=== PATIENT | male | born 1955 | race Caucasian/White ===

== ENCOUNTER 2024-03-11 17:01 | Emergency (ER) | payer MEDICARE, SELFPAY ==
[2024-03-11 17:23] VITALS: BP 139/97; PULSE 101; RESP 20; TEMP 36.6; O2SAT 97
[2024-03-11 17:34] VITALS: BP 139/97; PULSE 101; RESP 20; TEMP 36.6; O2SAT 97
--- NOTE | 2024-03-11 18:19 | ED.SKABFB ---
HPI - Skin/Abscess/Foreign Bdy General Chief complaint: Skin/Abscess/Foreign Body Stated complaint: Skin Sore/Legs Time Seen by Provider: 03/11/24 18:10 Source: patient, RN notes reviewed and old records reviewed Mode of arrival: ambulatory Limitations: no limitations History of Present Illness HPI narrative: 68 year old male presents to express care with complaints of redness and swelling his bilateral lower legs with some itching and some areas of discomfort. Patient reports that his legs have b3n swollen for months and for the past week he has been keeping them elevated and the swelling is better. He saw his pain doctor last week on Sunday and was told he needed to go get legs looked at and he may need antibiotic.Patient has no ope areas note on legs or any weeping has area of scabs noted to anterior left lower leg, left leg swollen greater than right with 1+ pitting edema from mid lower leg to ankles. MD complaint: other (cellulitis, redness and swelling of bilateral lower legs) Onset (ago): month(s) (states sweling for months) Location: LLE and RLE Severity scale (1-10): 8 Exacerbating factors: other (walking and weight bearing and palpation) Treatments prior to arrival: other (elevation of his legs) Related Data Home Medications Medication Instructions Recorded Confirmed aripiprazole 10 mg tablet mg 03/11/24 citalopram 10 mg tablet mg 03/11/24 diclofenac sodium 1 % topical gel topical 03/11/24 hydrocodone 7.5 mg-acetaminophen tablet 03/11/24 325 mg tablet ibuprofen 800 mg tablet mg 03/11/24 lidocaine 5 % topical ointment 03/11/24 metformin 500 mg tablet mg 03/11/24 phentermine 30 mg capsule mg 03/11/24 semaglutide 14 mg tablet (Rybelsus) mg PO 03/11/24 03/11/24 Allergies Allergy/AdvReac Type Severity Reaction Status Date / Time No Known Allergies Allergy Verified 03/11/24 17:15 Review of Systems Review of Systems: CONSTITUTIONAL: Denies fever, chills, or sweats. CARDIOVASCULAR: Denies chest pain, palpitations, or edema. RESPIRATORY: Denies cough or dyspnea. GASTROINTESTINAL: Denies abdominal pain, nausea, vomiting SKIN: Reports redness and swelling to bilateral pretibial to pedal area with no open drainage or open wound but few scabbed area. Denies purulent drainage, vesicles, bullae, reports some pain to legs aggravated by activity and palpation, pedal pulses palpable fair quality bilateral with left leg swollen greater than right. MUSCULOSKELETAL: Denies myalgia. NEUROLOGIC: Denies headache, numbness All systems reviewed & are unremarkable except as noted in HPI and below PMFSH Past Medical History Medical History (Updated 03/12/24 @ 20:19 by Arlyn Chisholm NP) Anxiety and depression Back injury Cellulitis Chronic back pain Diabetes Fracture of neck Fracture, ankle Fractured elbow Surgical History Surgical History (Updated 03/12/24 @ 20:18 by Arlyn Chisholm NP) H/O cervical spine surgery with hardware S/P spinal surgery lumbar Social History Social History (Updated 03/12/24 @ 20:20 by Arlyn Chisholm NP) Smoking packs per day: 0.5 Smoking cigarettes per day: 10.0 Smoking status: Current every day smoker Tobacco type: cigarettes Alcohol intake: unknown Substance use: current Substance use type: opiates Other substance usage details: pain management for chronic back pain Comments At time of signature, agree with nursing past medical, surgical, social and family history. There is no relevant family history pertinent to the presenting complaint Exam Narrative: GENERAL:chronic ill-appearing, well-nourished, obese and in no acute distress. HEAD: Normocephalic, atraumatic. EYES: PERRLA, conjunctivae clear, and EOMI. ENT: Mucous membranes moist. Oropharynx without edema, erythema or lesions. NECK: Supple. No lymphadenopathy CHEST: Clear to auscultation. No respiratory distress.no tachypnea SAO2 97% on room air HEART: Regular rate
== END 2024-03-11 18:40 | disposition home or self-care (01) ==
PROVIDERS: Emergency Provider Registered Nurse
DX: L03.116 Cellulitis of left lower limb (principal); L03.115 Cellulitis of right lower limb; E11.9 Type 2 diabetes mellitus without complications; F17.210 Nicotine dependence, cigarettes, uncomplicated; Z79.84 Long term (current) use of oral hypoglycemic drugs
CPT/HCPCS: 99203; G0463

== ENCOUNTER 2024-11-19 19:58 | Emergency (ER) | payer MEDICARE, SELFPAY ==
--- OUTSIDE RECORDS SUMMARY | 2024-11-19 20:01 | XMS_ITS | Clinical Summary ---
Author Organization [facility] Address [address] [place] [address] Care Team Providers Care Scientific Laboratory Supervisor Name Role Phone Unavailable Primary Care Provider Unavailabl e Source Comments [facility],non-owned Affiliates and Associated Physician Practices is amultiple site organization consisting of ambulatory clinics and hospital sitesin [place], [place], [place] and [place]. This disclosure is being madepursuant to the Care Everywhere program and may not contain all information available regarding this patient. Last updated 18.[facility] [employer] Allergies No known active allergies Medications * Be aware that medications may not be up to date on this document. Alwaysverify current medications with the patient. acetaminophen (TYLENOL) 325 MG tablet Take 2 Tabs by mouth every 4 hours as needed ( for temperature greater than 101F). Maximum allowable Acetaminophen amount = 4 Grams (4000 mg) / 24 hours. 5 Active ondansetron (ZOFRAN) 4 MG tablet Take 1 Tab by mouth every 4 hours as needed for Nausea/Vomiting. 10 Tab 0 5 Active ibuprofen (MOTRIN) 800 MG tablet Take 1 Tab by mouth every 6 hours as needed for Pain Take it with food 60 Tab 0 5 Active albuterol-ipra tropium (DUO-NEB) 0.5-2.5 (3) MG/3ML nebulizer solution Inhale 3 mL by mouth every 4 hours as needed for Shortness of Breath or Wheezing 3 mL 0 5 Active ARIPiprazole (ABILIFY) 10 MG tablet Take 10 mg by mouth once daily Active amphetamine-de xtroamphetamin e (ADDERALL) 20 MG tablet Take 20 mg by mouth every morning Active Active Problems Problem Noted Date Diagnosed Date Closed dislocation of left hip 02/26/2019 Cellulitis 11/23/2014 Immunizations Immunization Administration Dates Next Due PNEUMOCOCCAL PPSV23 11/28/2014 Social History Tobacco Use Types Packs/Day Years Used Date Smoking Tobacco: Every Day Cigarettes Smokeless Tobacco: Never Tobacco Cessation:Ready to Q uit: No; Counseling Given: Yes Alcohol Use Standard Drinks/Week Comments Yes 0 (1 standard drink = 0.6 oz pur e alcohol) occ Sex and Gender Information Value Date Recorded Sex Assigned at Not on file Legal Sex Male 10:06 AM CDT Gender Identity Not on file Sexual Orientation Not on file Last Filed Vital Signs Vital Sign Reading Time Taken Comments Blood Pressure 129/70 03/04/2019 11:59 AM CDT Pulse 75 03/04/2019 11:59 AM CDT Temperature 36.7 C (98 F) 03/04/2019 11:59 AM CDT Respiratory Rate 16 03/04/2019 11:5 9 AM CDT Oxygen Saturation 93% 03/04/2019 11: 59 AM CDT Inhaled Oxygen Concentration 21% 12/26/2014 7 :46 AM CDT Weight 117.5 kg (259 lb 0.7 oz) 03/02/2019 3:29 AM CDT Height 182.9 cm (6') 02/26/2019 6:24 PM CDT Body Mass Index 35.13 02/26/2019 6:24 PM CDT Plan of Treatment Health Maintenance Due Date Last Done Comments COLOGUARD (AGES 45-75) - COL ON CA SCREENING 1956 COLON MONITORING 1956 COLONOSCOPY - COLON CA SCREENING 1956 CT COLONOGRAPHY - COLON CA SCREENING 1956 Colorectal Cancer Screening 1956 FIT - COLON CA SCREENING 1956 FLEX SIG - COLON CA SCREENING 1956 LIPID TESTING 1956 HEPATITIS C SCREENING 11/15/1974 DTAP/TDAP/TD VACCINES (1 - Tdap) 11/20/1975 ZOSTER VACCINE (1 of 2) 2006 PNEUMOCOCCAL VACCINE 50+ (2 of 2 - PCV) 11/29/2015 11/28/2014 AAA SCREENING 2021 COVID-19 VACCINE (1 - 2023-2 5 season) 2024 DEPRESSION SCREENING 07/02/2024 INFLUENZA VACCINE (Season Ended) 2025 Respiratory Syncytial Virus (RSV) Vaccine Pt: or over 60 yrs (1 - 1-dose 75+ series) 11/20/2031 HEPATITIS B VACCINE Aged Out No longe r eligible based on patient's age to complete this topic HIB VACCINE Aged Out No longer eligi ble based on patient's age to complete this topic HPV VACCINE Aged Out No longer eligi ble based on patient's age to complete this topic MENINGOCOCCAL (Group B) VACC INE SHARED DECISION-MAKING Aged Out No longer eligibl e based on patient's age to complete this topic MENINGOCOCCAL GROUPS A/C/Y/W VACCINE Aged Out No longer eligible b ased on patient's age to complete this topic Insurance MEDICARE MEDICAID - [place] MEDICARE MEDICAID - OUT OF [facility] Advance Directives * Full Code (Latest Code Status on File) Date Activated Date Inactivated Comments 02/26/2019 10:46 PM 03/04/2019 6:06 PM * Full Code Date Activated Date Inactivated Comments 12/20/2014 6:01 PM 12/26/2014 3:34 PM * Full Code Date Activated Date Inactivated Comments 11/21/2014 3:42 PM 11/28/2014 4:48 PM
--- OUTSIDE RECORDS SUMMARY | 2024-11-19 20:01 | XMS_ITS | Encounter Summary ---
Author Organization [facility] Address [address] [place] [address] Phone Care Team Providers Care Senior Sales Consultant Name Role Phone Brian Renteria MD Unavailable Unavailab Priyank Dick MD Primary Care Provider [phone] Omar Hernandes MD Unavailable Encounter Details Date Type Department Care Team (Late st Contact Info) Description 07/08/2020 Telephone [facility] Oncology Services [address] [place] [phone] Joseph Iglesias MD [address] [place] [address] Social History Tobacco Use Types Packs/Day Years Used Date Smoking Tobacco: Every Day Cigarettes 1 47.9 Started: 12/14/1976 Smokeless Tobacco: Never Alcohol Use Standard Drinks/Week Comments No 0 (1 standard drink = 0.6 oz pur e alcohol) Sex and Gender Information Value Date Recorded Sex Assigned at Not on file Legal Sex Male 7:52 PM CDT Gender Identity Not on file Sexual Orientation Not on file COVID-19 Exposure Response Date Recorded In the last month, have you been in contact with someone who was confirmed or suspected to have Coronavirus / COVID-19? No / Unsure 06/09/2020 3:24 PM SURFACE HYDROLOGIST documented as of this encounter Miscellaneous Notes * Telephone Encounter - Carlyn Mancini - 07/08/2020 1:09 PM CST I reached out to the patient to inform him that we would need to reschedule his follow up until hisCT angio was completed. It seems as if scheduling tried contacting the patient on several occasions, was unable to leave a voicemail, and did not receive a returned call. I provided the number for the [facility] scheduling department and asked the patient to please contact our office with his CT appt date. We will makes sure to get the patient back on the schedule. ACE HYDROLOGIST documented in this encounter Plan of Treatment Not on file documented as of this encounter Visit Diagnoses Not on filedocumented in this encounter Additional Health Concerns Assessment Noted Time PHQ-9 Depression Total Score: 1 02/21/20 19 1:00 PM CDT documented as of this encounter Care Teams Senior Sales Consultant Relationship Specialty Start Date End Date Priyank Ordonez MD [address] [facility] [address] [place] [address] PCP - General Family Medicine 03/25/19 Brian Renteria MD Consulting Physician Orthopaedic Surgery 12/14/17 Omar Hernandes MD [address] [facility] [address] [place] [address] Consulting Physician General Surgery 08/24/21 documented as of this encounter
--- OUTSIDE RECORDS SUMMARY | 2024-11-19 20:01 | XMS_ITS | Encounter Summary ---
Author Organization [facility] Address [address] [place] [address] Care Team Providers Care Finance Attorney Name Role Phone Unavailable Primary Care Provider Unavailabl e Encounter Details Date Type Department Care Team (Late st Contact Info) Description 08/12/2020 Lab Requisition [facility] Care DermPath Lab [address] [place] [address] Adrien Wright Jr., MD [address] [place] [address] Social History Tobacco Use Types Packs/Day Years Used Date Smoking Tobacco: Every Day Cigarettes Smokeless Tobacco: Never Alcohol Use Standard Drinks/Week Comments Yes 0 (1 standard drink = 0.6 oz pur e alcohol) occ Sex and Gender Information Value Date Recorded Sex Assigned at Not on file Legal Sex Male 10:06 AM CDT Gender Identity Not on file Sexual Orientation Not on file documented as of this encounter Functional Status * Is person deaf or have serious hearing difficulty? Answer Date of Assessment Author No 02/26/2019 10:30 PM KAMILAHT Duong Keller RN * Is person blind or have serious difficulty seeing? Answer Date of Assessment Author No 02/26/2019 10:30 PM KAMILAHT Duong Keller RN * Does person have serious difficulty walking/climbing stairs? Answer Date of Assessment Author No 02/26/2019 10:30 PM Duong Ochoa RN * Does person have difficulty dressing/bathing? Answer Date of Assessment Author No 02/26/2019 10:30 PM Duong Ochoa RN * Does person have difficulty doing errands alone? Answer Date of Assessment Author No 02/26/2019 10:30 PM Duong Ochoa RN documented as of this encounter Mental Status * Does person have difficulty concentrating/remembering/making decisions? Answer Entry Date Author No 02/26/2019 10:30 PM Duong Ochoa RN documented in this encounter Plan of Treatment Not on file documented as of this encounter Procedures Procedure Name Priority Date/Time Associated Diagnosis Comments DERMATOPATHOLOGY Routine 08/11/2020 12:0 0 AM MORTAR MAKER documented in this encounter Results * DERMATOPATHOLOGY (08/11/2020 12:00 AM MORTAR MAKER) Case Report Dermatopathology Report Case: [id number] Authorizing Provider: Adrien Wright Jr., MD Collected: 08/11/2020 12:00 AM Ordering Location: [facility] DermPath Lab Received: 08/12/2020 12:00 PM Pathologist: Beck Short MD Specimens: A) - Skin, right inferior central forehead B) - Skin, left central buccal cheek C) - Skin, left superior lateral malar cheek 1 2:13 PM [facility] DERMATOPATHOLOGY LABORATORY Final Diagnosis Specimen A. SKIN, right inferior central forehead: COMPOUND MELANOCYTIC NEVUS, IRRITATED (D22.39) Specimen B. SKIN, left central buccal cheek: PIGMENTED SEBORRHEIC KERATOSIS (L82.1) Specimen C. SKIN, left superior lateral malar cheek: INTRADERMAL MELANOCYTIC NEVUS (D22.39) 1 2:13 PM [facility] DERMATOPATHOLOGY LABORATORY at [address] [facility] Clinical History A: Irritated nevus. B: Inflamed seborrheic keratosis. C: Intradermal nevus. . 1 2:13 PM [facility] DERMATOPATHOLOGY LABORATORY Gross Description Specimen A: Received is one formalin filled container labeled with the patient's name and designated right inferior central forehead. The specimen consists of a shave biopsy measuring [id number], bisected. Jar 0. Specimen B: Received is one formalin filled container labeled with the patient's name and designated left central buccal cheek. The specimen consists of a shave biopsy measuring [id number]. Jar 0. Specimen C: Received is one formalin filled container labeled with the patient's name and designated left superior lateral malar cheek. The specimen consists of a shave biopsy measuring [id number]. Jar 0. 1 2:13 PM [facility] DERMATOPATHOLOGY LABORATORY Microscopic Description Specimen A. SKIN, right inferior central forehead: There is melanin pigment in the stratum corneum. There are nests of melanocytes at the dermal-epidermal junction and within the dermis. Specimen B. SKIN, left central buccal cheek: Sections show an acanthotic lesion composed of relatively uniform keratinocytes. There is hyperkeratosis and pseudo horn cysts. Pigment is present in the keratinocytes composing this tumor. Specimen C. SKIN, left superior lateral malar cheek: There are nests of cytologically bland melanocytes within the dermis that mature with depth. 2:13 PM [facility] DERMATOPATHOLOGY LABORATORY Disclaimer An external and internal positive and negative controls are appropriate for the histochemical, immunohistochemical and immunofluorescence stain(s) in this case (if any), except where stated explicitly. The performance characteristics of the stain(s) cited in this report were developed and its performance characteristic determined by the Dermatopathology Laboratory at [facility], directed by Dr. Raiza Short. These tests need not be, and therefore are not, approved by the [place] Food and Drug Administration. The tests are used for clinical purposes. Billing Codes Specimen Charges Stain Charges 58145 [id number] 19031 1 1 1 1 2:13 PM [facility] DERMATOPATHOLOGY LABORATORY Embedded Images 2:13 PM [facility] DERMATOPATHOLOGY LABORATORY Pathology/Cytology TISSUE SPECIMEN FROM SKIN / Unknown 08/11/2020 08/12/2020 12:00 PM MORTAR [facility]KER Miscellaneous samples (specimen) TISSUE SPECIMEN FROM SKIN / Unknown 08/11/2020 08/12/2020 12:00 PM MORTAR MAKER Miscellaneous samples (specimen) TISSUE SPECIMEN FROM SKIN / Unknown 08/11/2020 08/12/2020 12:00 PM MORTAR [facility] us Adrien Wright Jr., MD LAB - PATHOLOGY/CYTOLOG Y ORDERABLES Final Result DERMATOPATHOLOGY LABORATORY [facility] - Department of Dermatology [facility] [address] [place] [address], [address] [phone] documented in this encounter Visit Diagnoses Not on filedocumented in this encounter
--- OUTSIDE RECORDS SUMMARY | 2024-11-19 20:01 | XMS_ITS | Encounter Summary ---
Author Organization [facility] Address [address] [place] [address] Phone Care Team Providers Care Commercial Subcontractor Name Role Phone Brian Renteria MD Unavailable Unavailab Priyank Ordonez MD Primary Care Provider + [phone] Omar Hernandes MD Unavailable Reason for Visit * Reason Onset Date Comments Referral 10/28/2020 Encounter Details Date Type Department Care Team (Late st Contact Info) Description 10/28/2020 Telephone [facility] [address] [place] [address] Priyank Ordonez MD [address] [address] Referral Social History Tobacco Use Types Packs/Day Years [...] have Coronavirus / COVID-19? No / Unsure 10/26/2020 4:24 PM CDT documented as of this encounter Miscellaneous Notes * Telephone Encounter - Doni Mcmahon RN - 10/28/2020 3:30 PM CDT Pt asking for a pain management referral to Dr Parnell for his back and hip pain. Referral penned for approval documented in this encounter Plan of Treatment Not on file documented as of this encounter Visit Diagnoses Diagnosis Chronic pain syndrome- Primary Left cervical lymphadenopathy Enlargement of lymph nodes History of hip replacement, total, left Other chronic back pain Hip pain Pain in joint, pelvic region and thigh documented in this encounter Additional Health Concerns Assessment Noted Time PHQ-9 Depression Total Score: 1 02/21/20 19 1:00 PM CDT documented as of this encounter Care Teams Commercial Subcontractor Relationship Specialty Start Date End Date Priyank Ordonez MD #2 [facility] [address] [place] [address] PCP - General Family Medicine 03/25/19 Brian Renteria MD Consulting Physician Orthopaedic Surgery 12/14/17 Omar Hernandes MD #2 [facility] [address] [place] [address] Consulting Physician General Surgery 08/24/21 documented as of this encounter
--- OUTSIDE RECORDS SUMMARY | 2024-11-19 20:02 | XMS_ITS | Continuity of Care Document ---
Author Organization [facility] Address [address] [place] [address] [place] [address] Phone Care Team Providers Care Educational Assistant Teacher Name Role Phone Arnol Liu MD Unavailable Unavailable Allergies, Adverse Reactions, Alerts Substance Reaction Status Criticality No Known Allergies Active No Inform ation Medications Medication Instructions Dosage Effective Dates (start - stop) Status Comments Percocet 5 mg-325 mg tablet take 1 tablet by oral route 4 times every day as needed as needed 1 tablet - Active PRn for pain, avoid driving or operate machines, Procedures Procedure Date OFFICE/OUTPATIENT VISIT, EST OFFICE/OUTPATIENT VISIT, EST OFFICE/OUTPATIENT VISIT, [facility] Advance Directives Directive Yes / No Effective Date File Name No Information Encounters Encounter Description Practice Location Reason(s) For Visit Diagnoses Date Provider Providers Copied on Encounter OFFICE/OUTPA TIENT VISIT, [facility], [address] [place], [id number], tel:[phone] [facility] pain (chief complaint) hernia1 (chief complaint) Ventral herniaChronic pain syndrome 1 Noe Lyles [address], [place], [id number] , [place]. tel:[phone] OFFICE/OUTPA TIENT VISIT, [facility], [address] [place], [id number], tel:[phone] [facility] hernia1 (chief complaint) pain1 (chief complaint) HTN (chief complaint) Chronic pain syndromeVentral herniaEssential (primary) hypertension 1 Noe Lyles [address], [place], [place], [id number] , [place]. tel:[phone] OFFICE/OUTPA TIENT VISIT, [facility], [address], [place], [place], [id number], [place] tel:[phone] [facility] chronic pain1 (chief complaint) ADD (chief complaint) HTN (chief complaint) hernia1 (chief complaint) Chronic pain syndromeEssential (primary) hypertensionVentral herniaAttention deficit 1 Noe Ambrose. [address], [place], [place], [id number] , [place]. tel:[phone] Family History Family Member Type Diagnosis Age At Onset Brother Problem Alive and well Mother Problem of lung [place] 71 Father Problem Alive and well Payers Payer name Insurance type Covered democrat ID Authoriza tion(s) No Information Social History Type Description Quantity Date Captured Comments Alcohol Use Details beer & wine Caffeine Use Details Unknown Tobacco Use Status Moderate cigarette smoker (10-19 cigs/day) Smoking Status Heavy tobacco smoker Smoking Tobacco Use Details Cigarette: Age Started: 34, Years Used 31 Cigarette: 0.5 Packs per day, Pack Year: 15.5 Sex Male Vital Signs Date / Time: Height Weight BMI Pulse Rate Blood Pressure Temperature Respiratory Rate Body Surface Area Head Circumference BMI percentile Pulse Ox Inhaled Ox 3:01 PM 72.00 in 312.20 lbs 42.3 4 kg/m eter (2) 83 /min 137/78 mm[Hg] 95.8 F 18 /min Chief Complaint And Reason For Visit From encounter dated '01/25/2021 15:00'. pain (chief complaint). Description: Pt has severe chronic neck and hip pain Pt has history of necksurgery due to cervical disc herniation. Pt c/o right radiculopathy and right hand numbness and tingling. Pt has ml with new pain management on 02/03/21. He had ml in December but the ml was canceled and rescheduled until 02/03/21 hernia1 (chief complaint). Description: Pt has non reducible ventral hernia/ P denies any worseningpain .Pt called surgery and is trying to get ml set up .Pt could not go to ml in January due to personal issue and he will call back to schedule soon Plan Of Treatment Date Type Action Status Referral Referred To: Steve Miranda [address] [place], [phone] Ordered: Referrals: Steve Miranda. Evaluate and treat ordered Referral Ordered: Pain Medicine (related to Chronic pain syndrome) ordered Referral Ordered: Referrals: Pain Medicine. Evaluate and treat ordered History Of Present Illness Encounter Date Complaint History Of Prese nt Illness pain Pt has severe ch ronic neck and hip pain Pt has history of neck surgery due to cervical disc herniation. Pt c/o right radiculopathy and right hand numbness and tingling. Pt has ml with new pain management on 02/03/21. He had ml in December but the ml was canceled and rescheduled until 02/03/21 hernia1 Pt has non reduc ible ventral hernia/ P denies any worsening pain .Pt called surgery and is trying to get ml set up .Pt could not go to ml in January due to personal issue and he will call back to schedule soon pain1 Pt has severe ch ronic neck and hip pain Pt has history of neck surgery due to cervical disc herniation. Pt c/o right radiculopathy and right hand numbness and tingling. Pt sees Dr. Sullivan for pain management. Pt states that he has to go over to [facility] twice per month and he has to get neck injection every time he goes there which is not helping his pain. Pt currently takes percocet 5 mg QID which is not helping his pain either. Pt does not want to go to Dr. Sullivan anymore for pain management. He states that Dr. Sullivan's office is very unprofessional. Pt has ml with Dr. Allen in 3 months hernia1 Pt has history o f ventral hernia repair and he notices a small bulge with pain around the surgical site x 3 months. Pt denies any nausea, vomiting, constipation or diarrhea .Pt denies any bruising .Pt notices pain when he pushes on the spot. Pt decides to get it treated now. HTN Pt has HTN. Pt d enies any chest pain or headache. Pt denies any vision change . ADD Pt has ADD Pt ta kes adderall. Pt sees psychiatrist Pt has chronic fatigue with poor focus and concentration. Pt doing well with adderall HTN He denies any h/ o HTN Pt denies any chest pain or headache. Manual repeat BP is around 130/70 hernia1 Pt has history o f ventral hernia repair and he notices a small bulge with pain around the surgical site x 3 months. Pt denies any nausea, vomiting, constipation or diarrhea .Pt denies any bruising .Pt notices pain when he pushes on the spot. chronic pain1 Pt has severe ch ronic neck and hip pain Pt has history of neck surgery due to cervical disc herniation. Pt c/o right radiculopathy and right hand numbness and tingling. Pt sees Dr. Sullivan for pain management. Pt states that he has to go over to [facility] twice per month and he has to get neck injection every time he goes there which is not helping his pain. Pt currently takes percocet 5 mg QID which is not helping his pain either. Pt does not want to go to Dr. Sullivan anymore for pain management. He states that Dr. Sullivan's office is very unprofessional Instructions Date Instruction Additional Infor mckenzie No Information Assessments Type Assessment Date assessment Ventral hernia assessment Chronic pain syndrome Mental Status Date Cognitive Assessment Orientation - [place] ed to time, place, person, situation.
--- OUTSIDE RECORDS SUMMARY | 2024-11-19 20:02 | XMS_ITS | Clinical Summary ---
Author Organization [facility] Administrative Offices Address [address] [place] [address] Care Team Providers Care Hospital Social Worker Name Role Phone Unavailable Primary Care Provider Unavailabl e Social History Tobacco Use Types Packs/Day Years Used Date Smoking Tobacco: Never Assessed Sex and Gender Information Value Date Recorded Sex Assigned at Not on file Legal Sex Male 9:22 PM CDT Gender Identity Not on file Sexual Orientation Not on file Plan of Treatment Health Maintenance Due Date Last Done Comments DTAP/TDAP/TD VACCINES (1 - Tdap) 11/20/1975 COLORECTAL SCREENING 2001 Colorectal Cancer Screening 2001 FIT-DNA Q 3 years 2001 FIT/FOBT Q 1 year 2001 Flex Sig/CT Colonography Q 5 years 2001 ZOSTER VACCINE (1 of 2) 2006 PNEUMOCOCCAL VACCINE 50+ YEA RS (2 of 2 - PCV) 11/29/2015 11/28/2014 RSV VACCINE (60+ or ) (1 - Risk 60-74 years 1-dose series) 2016 INFLUENZA VACCINE (#1) 2024 03/31/2020, 2018 Insurance [employer] OPEN CHOICE PPO
--- OUTSIDE RECORDS SUMMARY | 2024-11-19 20:02 | XMS_ITS | Patient Health Record ---
Author Organization [facility] Address [address] [place] [address] Care Team Providers Care Heating And Blending Supervisor Name Role Phone Hesham Josiah Primary Care Provider Sar[facility], [facility] Unavailable U navailable Allergies No Known Allergies Reason For Referral No Information Medications Medication SIG (Take, Route, Frequency, Duration) Notes Start Date End Date Status Omeprazole 20 MG 1 capsule Orally Onc e a day Active hydrOXYzine HCl 10 MG two tablets Orally every 6 hrs for 30 days Active Abilify 10 MG 1 tablet Orally Once a day for 30 days Active hydrOXYzine HCl 10 MG 1-2 tablets for an xiety as needed Orally every 6 - 8 hrs for 30 days Active HYDROcodone-Acetaminophen 10-325 MG 1 tablet as needed Orally every 4 hrs Active Social History Tobacco Use: Social History Observation Description Date Details (start date - stop date) Current Smoker NA - NA Sex Assigned At : Social History Observation Description Sex Assigned At Male Dont use, Tobacco Use/Smoking Question Answer Notes Are you a current smoker Problems Problem Type SNOMED Code ICD Code Onset Dates Problem Status W/U Status Risk Notes Problem Schizoaffective disorder, bipolar type (43814353) Schizoaffective disorder, bipolar type (F25.0) Active confirmed Problem Posttraumatic stress disorder (82046248) PTSD (post-traumatic stress disorder) (F43.10) Active confirmed Problem Attention deficit hyperactivity disorder, predominantly inattentive type (36161412) ADHD (attention deficit hyperactivity disorder), inattentive type (F90.0) Active confirmed Problem Tobacco use (285286453) Tobacco use disorder (F17.200) Active confirmed Plan Of Treatment No Information Insurance Providers Payer Name Payer Address Payer Phone Subscriber Number Group Number Insured Name Patient Relationship to Insured Coverage Start Date Coverage End Date A[employer] Better [employer] Medicare-MM AI [address] [address] [place] [address] [id number] Robb Martin Self - patient is the insured [address] [facility] [address] [place] [address] [phone] [id number] Robb Martin Self - patient is the insured 2 MEDICARE PART A [address] [place] [address] [id number] Robb Martin Self - patient is the insured 5 [address] [place] [address] [id number] Robb Martin Self - patient is the insured 9 1 [employer] [address] [facility] [address] [place] [address] [id number] Robb Martin Self - patient is the insured 1 1 Aetna Medicare [address] [place] [address] [id number] Robb Martin Self - patient is the insured 2 1 Medical (General) History Medical History History ICD Code neuropathy Surgical History Surgery Date(Month/Year) 5 hip replacement [id number] 3 hip dislocation neck surgery 2005 Hospitalization History Reason Date(Month/Year) 5 hip replacement [phone] 3 hip dislocation neck surgery 2005
--- OUTSIDE RECORDS SUMMARY | 2024-11-19 20:02 | XMS_ITS | Referral Summary ---
Author Organization [facility] Address [address] [place] [address] Care Team Providers Care Manager Sap Name Role Phone Priyank Ordonez MD Primary Care Provider [phone] Cinthia Dickens RN Unavailable Unavailab le Allergies Active Allergy Reactions Criticality Noted Date Comments Ketamine Hallucinations High 09/17/2018 Intolerant to ketamine - high probability for emergence No Known Allergies Other (See comments) Low Reaction: Penicillins Hives,Nausea only Medium Reaction: HIVES Upset Stomach Medications ascorbic acid, vitamin C, (VITAMIN C) 500 mg capsule, extended release CR capsule Take one capsule PO once daily 30 0 6 Active multivitamin capsule Take 1 capsule by mouth daily Active albuterol HFA (VENTOLIN HFA) 90 mcg/actuation inhaler Inhale 2 puffs every 6 (six) hours as needed for wheezing. 1 Inhaler 9 Active ARIPiprazole (ABILIFY) 10 mg tablet TK 1 T PO D 2 9 Active cyanocobalamin (Vitamin B-12) 500 mcg tablet Take 500 mcg by mouth daily 9 Active albuterol 2.5 mg /3 mL (0.083 %) nebulizer solution Take 3 mL (2.5 mg total) by nebulization every 6 (six) hours as needed for wheezing 75 mL 4 Active ipratropium (ATROVENT) 0.02 % nebulizer solution Take 2.5 mL (0.5 mg total) by nebulization every 6 (six) hours 75 mL 4 Active omega-3 fatty acids-fish oil 300-1,000 mg capsuleIndicati ons:hypertrigly ceridemia Take 2 capsules (2 g total) by mouth daily Active metFORMIN (GLUCOPHAGE) 500 mg tabletIndicatio ns:type 2 diabetes mellitus Take 1 tablet (500 mg total) by mouth 2 (two) times a day with meals Active lidocaine (XYLOCAINE) 5 % ointment Apply 1 Application topically 2 (two) times a day 4 Active Active Problems Problem Noted Date Diagnosed Date Type 2 diabetes mellitus with diabetic neuropath y 04/30/2024 Hypocalcemia 04/30/2024 Hypokalemia 04/30/2024 Facial cellulitis 04/29/2024 Right shoulder pain 01/02/2022 Nicotine dependence, unspecified, uncomplicated 12/13/2021 Posttraumatic stress disorder 12/13/2021 Schizoaffective disorder, bipolar type 2 Acute thrombosis of left axillary vein 0 Enlargement of submandibular gland 06/14/2020 Left cervical lymphadenopathy 06/14/2020 Thrombophlebitis 06/14/2020 Ventral hernia without obstruction or gangrene 1 08/10/2019 Axillary mass, left 06/03/2020 Mass of left side of neck 06/03/2020 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, left 1 08/04/2019 History of abdominal hernia 04/28/2020 Cardiomegaly 04/05/2020 Pulmonary emphysema 05/18/2019 Primary osteoarthritis of right knee 05/05/[address] 04/13/2019 B12 deficiency 04/13/2019 Opacity of lung on imaging study 04/13/2019 Complex regional pain syndro me type 1 of both lower extremities 04/07/2019 Post laminectomy syndrome 04/07/2019 Long-term current use of opiate analgesic 2018 Anxiety 03/25/2019 Chronic narcotic use 03/25/2019 History of hip replacement, total, left 03/25/20 19 Hyperglycemia 03/25/2019 Obesity (BMI 30-39.9) 03/25/2019 Smoker 03/25/2019 Closed dislocation of left hip 02/26/2019 Impotence 09/23/2018 Cervicalgia 08/22/2018 Degenerative disc disease, cervical 08/22/2018 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/2018 Fibromyalgia 08/22/2018 Insomnia 08/22/2018 Aftercare following left hip joint replacement s urgery 02/05/2018 ADD (attention deficit disorder) 12/26/2017 Vitamin D deficiency 12/26/2017 Depression 12/26/2017 Loosening of prosthetic hip 12/12/2017 Overview (12/12/2017): Added automatically from request for surgery [id number] Arthralgia of hip 08/15/2017 Hyperlipidemia 07/02/2017 Peripheral neuropathy 12/08/2015 Arthritis 08/30/2015 Immunizations Immunization Administration Dates Next Due Pneumococcal Polysaccharide PPV23 11/28/2014 Social History Tobacco Use Types Packs/Day Years Used Date Smoking Tobacco: Every Day Cigarettes 0.2 36.7 Started: 1986; Last attempted to quit: 10/30/2017 Smokeless Tobacco: Never Tobacco Cessation:Ready to Q uit: Yes; Counseling Given: Not Answered Comments:patient is taking chantix now Alcohol Use Standard Drinks/Week Comments No 0 (1 standard drink = 0.6 oz pur e alcohol) thesweetlinkities Answer Date Recorded In the past 12 months has [employer], gas, oil, or water [employer] threatened to shut off services in your home? No 05/02/2024 Social Connection and Isolat ion Panel [NHANES] Answer Date Recorded In a typical week, how many times do you talk on the phone with family, friends, or neighbors? More than three times a week 05/02/2024 How often do you get togethe r with friends or relatives? Once a week 05/02/2024 How often do you attend chur or muslim services? Never 05/02/2024 Do you belong to any clubs o r organizations such as caodaism groups, unions, fraternal or athletic groups, or school groups? No 05/02/2024 How often do you attend meet ings of the clubs or organizations you belong to? Never 05/02/2024 Are you , , di vorced, , never , or living with a partner? Never 05/02/2024 AUDIT-C Answer Date Recorded Q1: How often do you have a drink containing alc ohol? 2-3 times a week 04/30/2024 Q2: How many drinks containi ng alcohol do you have on a typical day when you are drinking? 1 or 2 04/30/2024 Q3: How often do you have si x or more drinks on one occasion? Never 04/30/2024 Overall Financial Resource Strain (CARDIA) Answe r Date Recorded How hard is it for you to pa y for the very basics like food, housing, medical care, and heating? Somewhat hard 05/02/2024 PHQ-2 Answer Date Recorded PHQ-2 Score 3 02/19/2019 Hunger Vital Sign Answer Date Recorded Within the past 12 months, y ou worried that your food would run out before you got the money to buy more. Never true 05/02/20 24 Within the past 12 months, t he food you bought just didn't last and you didn't have money to get more. Never true 05/02/2024 PRAPARE - Transportation Answer Date Re corded In the past 12 months, has l ack of transportation kept you from medical appointments or from getting medications? No 07/2023 In the past 12 months, has l ack of transportation kept you from meetings, work, or from getting things needed for daily living? No 05/02/2024 Housing Stability Vital Sign Answer Adonis e Recorded In the last 12 months, was t here a time when you were not able to pay the mortgage or rent on time? No 05/02/2024 In the past 12 months, how m any times have you moved where you were living? 0 05/02/2024 At any time in the past 12 m [facility], were you homeless or living in a chcf (including now)? No 05/02/2024 Personal Safety Answer Date Recorded Have you ever been in or are you currently in a harmful physical or emotional relationship or is someone making you feel afraid or unsafe? 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 Gender Identity Not on file Sexual Orientation Not on file Last Filed Vital Signs Vital Sign Reading Time Taken Comments Blood Pressure 140/70 05/02/2024 11:32 AM CDT Pulse 87 05/02/2024 12:00 PM CDT Temperature 36.6 C (97.8 F) 05/02/2024 11:32 AM CDT Respiratory Rate 22 05/02/2024 11:32 AM CDT Oxygen Saturation 97% 05/02/2024 11:32 AM CDT Inhaled Oxygen Concentration - - Weight 131.5 kg (290 lb) 04/30/2024 4:24 PM CDT Height 182.9 cm (6') 04/30/2024 4:24 PM CDT Body Mass Index 39.33 04/30/2024 4:24 PM CDT Plan of Treatment Not on file Medical Devices Implanted Type Area [employer] Teacher Device Identifier Shelf Expiration Date Model / Serial / Lot [employer] [id number] Trilogy 60mm 36mm 9.9mm Primary Modular Cup Liner Hip Standard - S0 - [id number] Implanted:Qty: 1 on 12/27/2017 by Brian Renteria MD at [facility] Other - see comments Left: Hip [employer] [id number] 09/29/2022 [id number] / 0 / [id number] [employer] [id number] 60mm Modular Multihole Revision Hip Cup Acetabular Trabecular - S0 - [id number] Implanted:Qty: 1 on 12/27/2017 by Brian Renteria MD at [facility] Other - see comments Left: Hip [employer] [id number] 09/30/2027 [id number] / 0 / [id number] [employer] 6260-9-336 V40 Lfit 36mm Primary Hip +10mm Offset Taper Head Femoral - S0 - [id number] Implanted:Qty: 1 on 12/27/2017 by Brian Renteria MD at [facility] Other - see comments Left: Hip [employer] [id number] 07/31/2021 6260-9-336 / 0 / [id number] [employer] [id number] Trilogy 6.5mm 20mm Self Tap Screw Bone - S0 - [id number] Implanted:Qty: 1 on 12/27/2017 by Brian Renteria MD at [facility] Screw Left: Hip [employer] [id number] 10/30/2027 [id number] / 0 / [id number] [employer] [id number] Trilogy 6.5mm 30mm Self Tap Acetabular Cortical Screw Bone - S0 - [id number] Implanted:Qty: 1 on 12/27/2017 by Brian Renteria MD at [facility] Screw Left: Hip [employer] [id number] 10/30/2027 [id number] / 0 / [id number] [employer] [id number] Trilogy 6.5mm 40mm Self Tap Hip Acetabular Cortical Screw Bone - S0 - [id number] Implanted:Qty: 1 on 12/27/2017 by Brian Renteria MD at [facility] Screw Left: Hip [employer] [id number] 11/30/2027 [id number] / 0 / [id number] Procedures Procedure Name Priority Date/Time Associated Diagnosis Comments EGFR Routine 05/02/2024 4:17 AM CDT HEMOGLOBIN A1C Routine 04/30/2024 7:05 AM CDT from Last 3 Months or Most Recently Relevant to Health Maintenance Results * eGFR (05/02/2024 4:17 AM CDT) eGFR >90 >=60 mL/min/1. 73 m2 Comment: Interpretive Data Reference Interval Normal >/= 90 mL/min/1.73m2 Mildly decreased* 60 - 89 mL/min/1.73m2 Mildly to moderately decreased 45 - 59 mL/min/1.73m2 Moderately to severely decreased 30 - 44 mL/min/1.73m2 Severely decreased 15 - 29 mL/min/1.73m2 Kidney Failure < 15 mL/min/1.73m2 *Relative to young adult level Estimated glomerular filtration rate is determined by the 2020 CKD-EPI equation recommended by the National Kidney Foundation (A Unifying Approach to GFR Estimation: Recommendations of the NKF-ASK Task Force on Reassessing the Inclusion of Race in Diagnosing Kidney Disease, JASN 2020). The CKD-EPI equation should not be used for patients with unstable renal function and has not been validated in children and those over 70. Current interpretive data was last reviewed 2021. Blood 05/02/2024 4:17 AM CDT 05/02/2024 5:30 AM CDT us Mayra Grace MD LAB BLOOD ORDERABLES Final Resul t Performing Organization Address City/[facility] Co de Phone Number AJ MONROY ([facility]) [address] [place] [address] * (ABNORMAL) Hemoglobin A1c (04/30/2024 7:05 AM CDT) Hgb A1C 6.5(H) 4.0 - 5.6 % Estimated Average Glucose 140 mg/dL AJ MONROY ([facility]) Comment: The ADA recommends reporting an estimated Average Glucose (eAG) with all Hemoglobin A1c results using the equation derived from a study of 507 normal and diabetic adults. Minority populations were underrepresented and children were not included. (Diabetes Care 31:8557-1448, 2008). The eAG is not equivalent to a fasting glucose. Blood 04/30/2024 7:05 AM CDT 04/30/2024 2:54 PM CDT us Richie Machado Jr., MD LAB BLOOD ORDERABLE S Final Result Performing Organization Address City/[facility] Co de Phone Number AJ MONROY ([facility]) [address] [facility] [employer] [place] [address] from Last 3 Months or Most Recently Relevant to Health Maintenance Insurance MEDICARE IDPA [facility] MEDICARE IDPA AETNA [facility]VANTRA [facility] ADVANTRA Advance Directives For more information, please contact: [phone] * Full Code (Latest Code Status on File) Date Activated Date Inactivated Comments 04/30/2024 4:57 AM 05/02/2024 9:22 PM * Full Code Date Activated Date Inactivated Comments 12/27/2017 2:05 PM 01/01/2018 1:39 PM Care Teams Manager Sap Relationship Specialty Start Date End Date Priyank Ordonez MD [address] [place] [address] PCP - General 04/07/19 Cinthia Dickens, RN Registered Nurse 06/17/19
--- OUTSIDE RECORDS SUMMARY | 2024-11-19 20:02 | XMS_ITS | Encounter Summary ---
Author Organization [facility] Address [address] [place] [address] Phone Care Team Providers Care Chainsaw Mechanic Name Role Phone Brian Renteria MD Unavailable Unavailab le Priyank Ordonez MD Primary Care Provider + -[phone] Omar Hernandes MD Unavailable [phone] Reason for Visit * Reason Onset Date Comments Form Completion 11/04/2024 Encounter Details Date Type Department Care Team (Late st Contact Info) Description 11/04/2024 Telephone [facility] [address] [place] [address] Priyank Ordonez MD [address] [address] Form Completion Social History Tobacco Use Types Packs/Day Years [...] on file documented as of this encounter Miscellaneous Notes * Telephone Encounter - Rosmery Nova MA - 2024 10:42 AM CDT Faxed back. * Telephone Encounter - Mira Guerrero CMA - 11/04/2024 10:28 AM CDT Fax received from [facility] Chronic condition form Placed in provider folder for Signature/Completion. 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
--- OUTSIDE RECORDS SUMMARY | 2024-11-19 20:02 | XMS_ITS | Clinical Summary ---
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 use 08/22/2018 Fibromyalgia 08/22/2018 Insomnia 08/22/2018 Aftercare following left hip joint replacement s urgery 02/05/2018 ADD (attention deficit disorder) 12/26/2017 Vitamin D deficiency 12/26/2017 Depression 12/26/2017 Loosening of prosthetic hip 12/12/2017 Overview (12/12/2017): Added automatically from request for surgery [id number] Arthralgia of hip 08/15/2017 Hyperlipidemia 07/02/2017 Peripheral neuropathy 12/08/2015 Arthritis 08/30/2015 Immunizations Immunization Administration Dates Next Due Pneumococcal Polysaccharide PPV23 11/28/2014 Surgical History Surgery Date Site/Laterality Comments HERNIA REPAIR 07/02/2005 - 07/01/2006 Herniorrhaphy HIP ARTHROPLASTY 07/02/2003 - 07/01/2004 Hip replacement OTHER SURGICAL HISTORY many surgeries on neck, foot, hip VASECTOMY 07/02/1998 - 07/01/1999 Vasectomy HIP ARTHROPLASTY Left Hip replacement REVISION TOTAL HIP ARTHROPLASTY Medical History Medical History Date Comments Hx Other Medical 2003 neck surgery Hx Other Medical 2003 ankle surgery Depression Depression Arthritis Arthritis Adhd Depressed Family History Medical History Relation Name Comments Other Brother 2 Alive and well; Depression Brother 3 Depression; Other Father Alive and well; Depression Mother Depression; Lung cancer Mother Cancer -lung; Other Mother ; Relation Name Status Comments Brother 1 Alive Brother 2 Brother 3 Father Alive Mother Social History Tobacco Use Types Packs/Day Years Used Date Smoking Tobacco: Every Day Cigarettes 0.2 36.7 Started: 1986; Last attempted to quit: 10/30/2017 Smokeless Tobacco: Never Tobacco Cessation:Ready to Q uit: Yes; Counseling Given: Not Answered Comments:patient is taking chantix now Alcohol Use Standard Drinks/Week Comments No 0 (1 standard drink = 0.6 oz pur e alcohol) [facility] Utilities Answer Date Recorded In the past 12 months has [place], gas, oil, or water company threatened to shut off services in your [...] 05/02/2024 How often do you attend chur ch or protestant services? Never 05/02/2024 Do you belong to any clubs o r organizations such as baptist groups, unions, fraternal or athletic groups, or [...] any time in the past 12 m [facility], were you homeless or living in a intermediate (including now)? No 05/02/2024 Personal Safety Answer Date Recorded Have you ever been in or are you currently in a harmful physical or emotional relationship or is someone making you feel afraid or unsafe? 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 Gender Identity Not on file Sexual Orientation Not on file Obstetrics History Last Filed Vital Signs Vital Sign Reading [...] 04/30/2024 4:24 PM CDT Plan of Treatment Health Maintenance Due Date Last Done Comments Albumin Creatinine Ratio, Urine 1955 Colon Cancer Screening-Colonoscopy 1955 Hepatitis C Screening 1955 Prostate Cancer Screening-PSA 1955 Dilated Eye Exam 1956 Foot Exam 1956 DTaP/Tdap/Td Vaccine (1 - Tdap) 11/20/1967 Hepatitis B Screening 1974 Zoster Vaccine (1 of 2) 2006 Depression Screening 08/22/2019 08/22/2018, 08/22/19 19 Lipid Panel 04/01/2020 04/01/2019 Abdominal Aortic Aneurysm (A AA) Screen 2021 06/01/2020, 11/21/2014 Well Visit 65+ 2021 Covid-19 Vaccine (2 - 2023-2 5 season) 2024 03/21/2022 Hemoglobin A1C 10/29/2024 04/30/2024 Influenza Vaccine (Season Ended) 2025 03/31/20 20, 04/10/2019 Fall Risk Assessment 05/02/2025 05/02/2024 eGFR 05/02/2025 05/02/2024, 04/03, 04/30/2024, Additional history exists Pneumococcal vaccine 65+ (3 of 3 - PCV20 or PCV21) 08/30/2026 08/30/2021, 11/28/2014 Medical Devices Implanted Type Area Enterostomal Therapy Nurse Device Identifier Shelf Expiration Date Model / Serial / Lot [employer] [id number] Trilogy 60mm 36mm 9.9mm Primary Modular Cup Liner Hip Standard - S0 - [id number] Implanted:Qty: 1 on 12/27/2017 by Brian Renteria MD at [facility] Other - see comments Left: Hip [employer] [id number] 09/29/2022 [id number] / 0 / [id number] [employer] [id number] 60mm Modular Multihole Revision Hip Cup Acetabular Trabecular - S0 - [id number] Implanted:Qty: 1 on 12/27/2017 by Brian Renteria MD at [facility] Other - see comments Left: Hip [employer] [id number] 09/30/2027 [id number] / 0 / [id number] [employer] 6260-9-336 V40 Lfit 36mm Primary Hip +10mm Offset Taper Head Femoral - S0 - [id number] Implanted:Qty: 1 on 12/27/2017 by Brian Renteria MD at [facility] Other - see comments Left: Hip [employer] [id number] 07/31/2021 6260-9-336 / 0 / [id number] [employer] [id number] Trilogy 6.5mm 20mm Self Tap Screw Bone - S0 - [id number] Implanted:Qty: 1 on 12/27/2017 by Brian Renteria MD at [facility] Screw Left: Hip [employer] [id number] 10/30/2027 [id number] / 0 / [id number] [employer] [id number] Trilogy 6.5mm 30mm Self Tap Acetabular Cortical Screw Bone - S0 - [id number] Implanted:Qty: 1 on 12/27/2017 by Brian Renteria MD at [facility] Screw Left: Hip [employer] [id number] 10/30/2027 [id number] / 0 / [id number] [employer] [id number] Trilogy 6.5mm 40mm Self Tap Hip Acetabular Cortical Screw Bone - S0 - [id number] Implanted:Qty: 1 on 12/27/2017 by Brian Renteria MD at [facility] Screw Left: Hip [employer] [id number] 11/30/2027 [id number] / 0 / [id number] Procedures Procedure Name Priority Date/Time Associated Diagnosis [...] MD LAB BLOOD ORDERABLES Final Resul t [facility] [address] [facility] [place] [address] * (ABNORMAL) Hemoglobin A1c (04/30/2024 7:05 AM CDT) Hgb A1C 6.5(H) 4.0 - 5.6 % Estimated Average Glucose 140 mg/dL [facility] Comment: The ADA recommends reporting an estimated Average Glucose (eAG) with all Hemoglobin A1c results using the equation derived from a study of 507 normal and diabetic adults. Minority populations were underrepresented and children were not included. (Diabetes Care 31:5636-6266, 2008). The eAG is not equivalent to a fasting glucose. Blood 04/30/2024 7:05 AM CDT 04/30/2024 2:54 PM CDT us Richie Machado Jr., MD LAB BLOOD ORDERABLE S Final Result [facility] [address] [facility] [place] [address] from Last 3 Months or Most Recently Relevant to Health Maintenance Insurance MEDICARE [facility]VANTRA [facility] Advance Directives For more information, please contact: [phone] * Full Code (Latest Code Status on File) Date Activated Date Inactivated Comments 04/30/2024 4:57 AM 05/02/2024 9:22 PM * Full Code Date Activated Date Inactivated Comments 12/27/2017 2:05 PM 01/01/2018 1:39 PM Care Teams Structural Rigger Relationship Specialty Start Date End Date Priyank Ordonez MD [address] [address] PCP - General 04/07/19 Cinthia Dickens, RN Registered Nurse 06/17/19
--- OUTSIDE RECORDS SUMMARY | 2024-11-19 20:02 | XMS_ITS | Clinical Summary ---
Author Organization [facility] Care Team Providers Care Data Center Project Manager Name Role Phone Brian Renteria MD Unavailable Unavailab Priyank Dick MD Primary Care Provider [phone] Omar Hernandes MD Unavailable Allergies No known active allergies Medications amphetamine-dex troamphetamine (ADDERALL) 20 MG Tablet 0 8 Active tamsulosin (FLOMAX) 0.4 MG Capsule TK ONE C PO D 2 8 Active ARIPiprazole (ABILIFY) 10 MG Tablet TK 1 T PO D 0 9 Active gabapentin (NEURONTIN) 300 MG CapsuleIndicati ons:Neuropathy Take 1 Cap by mouth 3 times daily. 90 Cap 3 9 Active sildenafil citrate (VIAGRA) 100 MG Tablet Take 1 Tab by mouth as needed for Erectile Dysfunction. 10 Tab 3 9 Active Symbicort 160-4.5 MCG/ACT Aerosol take 2 Puffs by inhalation 2 times daily. 10.2 g 2 0 Active hydrOXYzine (ATARAX) 10 MG Tablet 0 Active Morphine Sulfate 10 MG CAPSULE SR 24 HR TAKE 1 CAPSULE BY MOUTH AT BEDTIME 2 Active albuterol 108 (90 Base) MCG/ACT Aerosol Solution INHALE 1 TO 2 PUFFS BY MOUTH EVERY 4 HOURS NEEDED FOR WHEEZING 18 g 2 Active Active Problems Problem Noted Date Diagnosed Date Enlargement of submandibular gland 06/14/2020 Left cervical lymphadenopathy 06/14/2020 Acute thrombosis of left axillary vein 0 Thrombophlebitis 06/14/2020 Ventral hernia without obstruction or gangrene 1 08/10/2019 Mass of left side of neck 06/03/2020 Axillary mass, left 06/03/2020 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, left 1 08/04/2019 History of abdominal hernia 04/28/2020 Abdominal pain 04/28/2020 Cardiomegaly 04/05/2020 Pulmonary emphysema 05/18/2019 Erectile dysfunction 04/23/[address] 04/13/2019 Opacity of lung on imaging study 04/13/2019 B12 deficiency 04/13/2019 Anxiety 03/25/2019 Obesity (BMI 30-39.9) 03/25/2019 Chronic narcotic use 03/25/2019 History of hip replacement, total, left 03/25/20 19 Smoker 03/25/2019 Hyperglycemia 03/25/2019 Chronic pain syndrome 02/20/2019 Vitamin D deficiency 12/26/2017 Depression 12/26/2017 Hyperlipidemia 07/02/2017 Neuropathy 12/08/2015 Arthritis 08/30/2015 Synovitis of left foot ADD (attention deficit disorder) Resolved Problems Problem Noted Date Diagnosed Date Resolved Date Plantar fasciitis of right foot 12/14/2017 Sprain 12/14/2017 Overview (12/21/2014): Of the right second toe MTP joint Of the right third toe MTP joint Calcaneal spur 12/14/2017 Overview (12/21/2014): Plantar calcaneal spur of the right foot Encounters Date Type Department Care Team Description 11/04/2024 Telephone [facility] - Family [facility] [address] [place] [address] Priyank Ordonez MD Form Completion from Last 3 Months Immunizations Immunization Administration Dates Next Due Influenza Vaccine greater than 3 yrs 04/10/2019 Influenza Vaccine, Quadrivalent, PF 03/31/2020 Influenza, Seasonal, Injectable, Undefined 04/10 PNEUMONIA ADULT IM PPSV23 11/28/2014 Pneumococcal Vaccine - 13 Valent 08/30/2021 Pneumococcal Vaccine Adult - 23 Valent 5 Tetanus Toxoid, Unspecified Formulation 07/02/19 05 Family History Medical History Relation Name Comments No Known Problems Brother No Known Problems Daughter 1 No Known Problems Daughter 2 No Known Problems Father Cancer Mother Lung Skin Cancer Sister 1 No Known Problems Sister 2 No Known Problems Sister 3 No Known Problems Son Relation Name Status Comments Brother Alive Daughter 1 Alive Daughter 2 Alive Father Alive Mother Sister 1 Alive Sister 2 Alive Sister 3 Alive Son Alive Social History Tobacco Use Types Packs/Day Years Used Date Smoking Tobacco: Every Day Cigarettes 1 47.9 Started: 12/14/1976 Smokeless Tobacco: Never Tobacco Cessation:Ready to Q uit: No; Counseling Given: Yes Alcohol Use Standard Drinks/Week Comments No 0 (1 standard drink = 0.6 oz pur e alcohol) Sex and Gender Information Value Date Recorded Sex Assigned at Not on file Legal Sex Male 7:52 PM CDT Gender Identity Not on file Sexual Orientation Not on file Last Filed Vital Signs Vital Sign Reading Time Taken Comments Blood Pressure 140/88 08/30/2021 2:[address] Pulse 91 08/30/2021 2:[address] Temperature 36.1 C (97 F) 08/30/2021 2:[address] Respiratory Rate 16 08/30/2021 2:[address] Oxygen Saturation 94% 08/30/2021 2:[address] Inhaled Oxygen Concentration - - Weight 139.4 kg (307 lb 4.8 oz) 08/30/2021 2:[address] Height 182.9 cm (6') 08/30/2021 2:[address] Body Mass Index 41.68 08/30/2021 2:[address] Plan of Treatment Health Maintenance Due Date Last Done Comments TdaP Immunization 1955 Zoster Immunization (1 of 2) 11/20/1975 Cologuard 2006 Immunochemical Fecal Occult Blood 2006 Respiratory Syncytial Virus (RSV) Immunization (Adult) (1 - Risk 60-74 years 1-dose series) 2016 Colonoscopy 07/25/2019 07/25/2018 Colorectal Cancer Screening 07/25/2019 SARS-COV-2 Immunization ( season) 2024 03/21/2022, 11/28/2020, 11/07/2020 Influenza Immunization (Season Ended) 2025 03/13/2023, 03/31/2020, 04/10/2019, Additional history exists Pneumococcal Immunization (50+ years) (4 of 4 - PCV20 or PCV21) 08/30/2026 08/30/2021, 11/28/2014, 11/28/2014 07/25/2018 Hepatitis C Virus (HCV) Screening Completed 04/01/2019 PSA Discussion Completed 04/01/2019 Lung Cancer Screening Discontinued 04/26/2019, 015 Pneumococcal Immunization Combined Discontinued 08/30/2021, 11/28/2014, 11/28/2014 Hepatitis B Immunization Aged Out No longer eligible based on patient's age to complete this topic Human Papillomavirus (HPV) Immunization Aged Out No longer eligible based on patient's age to complete this topic Meningococcal Immunization (ACWY) Aged Out No longer eligible based on patient's age to complete this topic Rotavirus Immunization Aged Out No lo nger eligible based on patient's age to complete this topic Procedures Procedure Name Priority Date/Time Associated Diagnosis Comments CT CHEST W/O CONTRAST Routine 04/26/2019 12:37 PM CDT Shortness of breath Abnormal CXR Opacity of lung on imaging study HEPATITIS C ANTIBODY Routine 04/01/2019 11:16 AM CDT Encounter for hepatitis C screening test for low risk patient PSA SCREEN Routine 04/01/2019 11:16 AM CDT Screening for prostate cancer from Last 3 Months or Most Recently Relevant to Health Maintenance Results * CT CHEST W/O CONTRAST (04/26/2019 12:37 PM CDT) Anatomical Region Laterality Modality Chest N/A Computed Tomogra phy 04/28/2019 11:2 3 AM CDT Impressions 04/28/2019 11:26 AM CDT IMPRESSION: 1. There is no pulmonary parenchymal correlate for the left infrahilar opacity seen on the previous radiograph of 04/01/2019. The findings this previously are favored to reflect a summation artifact. 2. No acute pulmonary process. 3. Pulmonary emphysema. 4. Additional findings as described. Narrative 04/28/2019 11:26 AM CDT EXAM DESCRIPTION: CT CHEST W/O CONTRAST REASON FOR STUDY: Shortness of breath, chronic obstructive pulmonary disease and smoking history, duration of symptoms is 04/01/2019. TECHNIQUE: CT scan of the chest performed without intravenous contrast using helical scanning technique. Reconstructed coronal and sagittal MPR images reviewed. All images stored on PACS. Automated exposure control was used as a dose optimization technique for this examination. COMPARISON: Chest radiograph dated 04/01/2019 and 11/28/2014. FINDINGS: The sensitivity for detection of solid visceral lesions is diminished without the use of intravenous contrast. LUNGS: Mild upper lobe predominant centrilobular and paraseptal emphysematous changes. There is scattered linear atelectasis and/or scarring within both lungs. There is no focal pneumonic consolidation. An occasional calcified granuloma is noted. PLEURA: No effusion. No pneumothorax. MEDIASTINUM/DARIN: Subcentimeter mediastinal lymph nodes are considered nonspecific by size criteria. Assessment for hilar lymph nodes is limited without intravenous contrast. HEART: The heart is mildly enlarged. No pericardial effusion. VASCULATURE: Thoracic aorta is not aneurysmal. There are coronary artery calcifications. AXILLA: No adenopathy. CHEST WALL: No subcutaneous emphysema. HARDWARE/LINES/TUBES: None. UPPER ABDOMEN: Bilateral adrenal glands are symmetric. Partially visualized 1.8 cm fluid density left renal focus may reflect a cyst. MUSCULOSKELETAL: Visualized thoracolumbar vertebral body heights are maintained. Partially visualized lower cervical anterior fusion. Moderate adjacent level endplate degenerative changes. THIS IS AN ELECTRONICALLY VERIFIED FINAL REPORT 04/28/2019 11:23 AM - Electronically signed by Kyle Cho D.O. AP: AP Report ID: [id number] Reading Location: [id number] Procedure Note Kyle Cho DO - 04/28/2019 EXAM DESCRIPTION: CT CHEST W/O CONTRAST REASON FOR STUDY: Shortness of breath, chronic obstructive pulmonary disease and smoking history, duration of symptoms is 04/01/2019. TECHNIQUE: CT scan of the chest performed without intravenous contrast using helical scanning technique. Reconstructed coronal and sagittal MPR images reviewed. All images stored on PACS. Automated exposure control was used as a dose optimization technique for this examination. COMPARISON: Chest radiograph dated 04/01/2019 and 11/28/2014. FINDINGS: The sensitivity for detection of solid visceral lesions is diminished without the use of intravenous contrast. LUNGS: Mild upper lobe predominant centrilobular and paraseptal emphysematous changes. There is scattered linear atelectasis and/or scarring within both lungs. There is no focal pneumonic consolidation. An occasional calcified granuloma is noted. PLEURA: No effusion. No pneumothorax. MEDIASTINUM/DARIN: Subcentimeter mediastinal lymph nodes are considered nonspecific by size criteria. Assessment for hilar lymph nodes is limited without intravenous contrast. HEART: The heart is mildly enlarged. No pericardial effusion. VASCULATURE: Thoracic aorta is not aneurysmal. There are coronary artery calcifications. AXILLA: No adenopathy. CHEST WALL: No subcutaneous emphysema. HARDWARE/LINES/TUBES: None. UPPER ABDOMEN: Bilateral adrenal glands are symmetric. Partially visualized 1.8 cm fluid density left renal focus may reflect a cyst. MUSCULOSKELETAL: Visualized thoracolumbar vertebral body heights are maintained. Partially visualized lower cervical anterior fusion. Moderate adjacent level endplate degenerative changes. THIS IS AN ELECTRONICALLY VERIFIED FINAL REPORT 04/28/2019 11:23 AM - Electronically signed by Kyle Cho D.O. AP: AP Report ID: [id number] Reading Location: [place] [address] IMPRESSION: 1. There is no pulmonary parenchymal correlate for the left infrahilar opacity seen on the previous radiograph of 04/01/2019. The findings this previously are favored to reflect a summation artifact. 2. No acute pulmonary process. 3. Pulmonary emphysema. 4. Additional findings as described. Priyank Ordonez MD IMG CT ORDERABLES Final R esult * PSA SCREEN (04/01/2019 11:16 AM CDT) PSA SCREEN, TOTAL 1.34 <=4.00 ng/mL 04/01/2019 3:34 PM CDT [facility] Blood specimen (specimen) Venipuncture / Unknown 04/01/2019 11:16 AM CDT 04/01/2019 1:23 PM CDT Narrative [facility] - 04/01/2019 3:34 PM CDT PSA NOTE: The PSA value should be used in conjunction with information available from clinical evaluation and other diagnostic procedures. Priyank Ordonez MD CHEMISTRY ORDERABLES Lisbeth l Result [facility] [address] [place] [address] * HEPATITIS C ANTIBODY (04/01/2019 11:16 AM CDT) hepatitis C antibody 0.11 <1 S/CO 04/01/2019 9:50 PM CDT [facility] Comment: Signal/Cutoff ratio < 0.79 is Nondetected Signal/Cutoff ratio 0.80-0.99 is Grayzone Signal/Cutoff ratio > 0.99 is Detected Supplemental assays are recommended if signal/cutoff ratio is >/=1.00. Signal/cutoff ratio result >/= 5.00 is 97% predictive of positivity for recombinant immunoblot assay (RIBA) and will be reported to the [place] Department of Public Health as required. Blood specimen (specimen) Venipuncture / Unknown 04/01/2019 11:16 AM CDT 04/01/2019 1:23 PM CDT Priyank Ordonez MD CHEMISTRY ORDERABLES Lisbeth l Result [facility] [address] [place] [address], from Last 3 Months or Most Recently Relevant to Health Maintenance Insurance MEDICAID [place] MEDICARE C [employer] Care Teams Data Center Project Manager Relationship Specialty Start Date End Date Priyank Ordonez MD #2 [facility] [address] [place] [address] PCP - General Family Medicine 03/25/19 Brian Renteria MD Consulting Physician Orthopaedic Surgery 12/14/17 Omar Hernandes MD #2 [facility] [address] [place] [address] Consulting Physician General Surgery 08/24/21
--- OUTSIDE RECORDS SUMMARY | 2024-11-19 20:05 | XMS_ITS | Continuity of Care Document ---
Author Organization [facility] Address [address] [place] [address] [place] [address] Phone Care Team Providers Care Ortho/Prosthetic Aide Name Role Phone Arnol Liu MD Unavailable [...] VISIT, EST OFFICE/OUTPATIENT VISIT, EST OFFICE/OUTPATIENT VISIT, [facility] Advance Directives Directive Yes / No Effective Date File Name No Information Encounters Encounter Description Practice Location Reason(s) For Visit Diagnoses Date Provider Providers Copied on Encounter OFFICE/OUTPA TIENT VISIT, [facility], [address] [place], [id number], tel:[phone] [facility] pain (chief complaint) hernia1 (chief complaint) Ventral herniaChronic pain syndrome 1 Noe Lyles [address], [place], [id number] , [place]. tel:[phone] OFFICE/OUTPA TIENT VISIT, [facility], [address] [place], [id number], tel:[phone] [facility] hernia1 (chief complaint) pain1 (chief complaint) HTN (chief complaint) Chronic pain syndromeVentral herniaEssential (primary) hypertension 1 Noe Lyles [address], [place], [place], [id number] , [place]. tel:[phone] OFFICE/OUTPA TIENT VISIT, [facility], [address], [place], [place], [id number], [place] tel:[phone] [facility] chronic pain1 (chief complaint) ADD (chief complaint) HTN (chief complaint) hernia1 (chief complaint) Chronic pain syndromeEssential (primary) hypertensionVentral herniaAttention deficit 1 Noe Ambrose. [address], [place], [place], [id number] , [place]. tel:[phone] Family History Family Member Type Diagnosis Age At Onset Brother Problem Alive and well Mother Problem of lung [place] 71 Father Problem Alive and well Payers Payer name Insurance type Covered republican ID Authoriza tion(s) No Information Social History [...] To: Steve Miranda [address] [place], [id number] Ordered: Referrals: Steve Miranda. Evaluate and treat [...] that he has to go over to [facility] twice per month and he has to [...] that he has to go over to [facility] twice per month and he has to [...] Mental Status Date Cognitive Assessment Orientation - [place] ed to time, place, person, situation.
[2024-11-19 20:11] VITALS: BP 140/93; PULSE 111; RESP 24; TEMP 36.1; O2SAT 97
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
== END 2024-11-19 20:38 | disposition left against medical advice (07) ==
PROVIDERS: Emergency Provider Nurse Practitioner Family
DX: S09.93XA Unspecified injury of face, initial encounter (principal); Y00.XXXA Assault by blunt object, initial encounter; V43.53XA Car driver injured in collision with pick-up truck in traffic accident, initial encounter; E11.9 Type 2 diabetes mellitus without complications; F41.8 Other specified anxiety disorders; F17.210 Nicotine dependence, cigarettes, uncomplicated
CPT/HCPCS: 99212; G0463